=== PATIENT | male | born 1965 | race Caucasian/White ===

== ENCOUNTER 2019-05-26 10:27 | Outpatient (CLI) | payer OTHER, SELFPAY ==
[2019-05-26 10:46] LABS: Basophils Percent Auto 0.1 % (0.2-1.2); Eosinophils Absolute Auto 0.1 K/mm3 (0-0.3); Eosinophils Percent Auto 1.9 % (0-4.4); Hematocrit 49.2 % (42.0-52.0); Immature Granulocyte Absolute 0.02 K/mm3 (0.00-0.031); Immature Granulocyte Percent A 0.3 % (0-0.5); Lymphocytes Absolute Auto 1.09 K/mm3 (0.9-3.2); Lymphocytes Percent Auto 15.6 % (18.3-44.2); Mean Corpuscular HGB Conc 34.6 g/dl (32-36); Mean Corpuscular Hemoglobin 33.7 pg (26-34); Mean Corpuscular Volume 97.4 fl (80-100); Mean Platelet Volume 11.2 fl (7.4-10.4); Monocytes Percent Auto 14.9 % (2.6-8.5); Neutrophils Absolute Auto 4.7 K/mm3 (1.3-6.7); Neutrophils Percent Auto 67.2 % (45.5-73.1); Platelet Count Result 99 k/mm3 (150-375); Red Blood Count 5.05 M/mm3 (4.6-6.20); Red Cell Distribution Width 11.7 % (11.5-14.5)
[2019-05-26 12:21] LABS: Iron 53 ug/dL (49-181)
[2019-05-26 12:24] LABS: Alanine Aminotransferase 19 U/L (4-50); Albumin Level 4.4 g/dL (3.5-5.1); Alkaline Phosphatase 75 U/L (38-126); Aspartate Amino Transferase 24 U/L (17-59); Bilirubin,Total 1.9 mg/dL (0.2-1.3); Blood Urea Nitrogen 15 mg/dL (9-20); Calcium 9.1 mg/dL (8.4-10.2); Carbon Dioxide 26 mmol/L (22-30); Chloride 98 mmol/L (98-107); Estimated Glomerular Filt Rate > 60; Glucose 102 mg/dL (75-110); Lactate Dehydrogenase 447 U/L (313-618); Potassium 4.3 mmol/L (3.4-5.0); Sodium 142 mmol/L (137-145)
[2019-05-26 12:42] LABS: Percent Iron Saturation 17 % (20-50)
[2019-05-26 13:35] LABS: Folic Acid 13.3 ng/mL (2.76->20)
[2019-05-28 23:07] LABS: Platelet Antibody, Direct IgG NEGATIVE (NEGATIVE)
== END 2019-05-26 10:28 | disposition home or self-care (01) ==
LOC: ANHLAB 10:29
PROVIDERS: PCP Internal Medicine; Visit Provider Internal Medicine Hematology & Oncology
DX: D69.59 Other secondary thrombocytopenia (principal)
CPT/HCPCS: 36415; 80053; 82607; 82728; 82746; 83540; 83550; 83615; 85025; 86023

== ENCOUNTER 2019-06-01 07:41 | Outpatient (CLI) | payer OTHER, SELFPAY ==
--- NOTE | ~2019-06-01 | US_ITS ---
US abdomen complete EXAMINATION: US Abdomen Complete INDICATION: Thrombocytopenia PROCEDURE: Realtime High Resolution abdomen ultrasound. COMPARISON: No prior studies for comparison FINDINGS: Gallbladder within normal limits. No gallstones, pericholecystic fluid, gallbladder wall t hickening or biliary dilatation. Common bile duct measures 4 mm. Liver echotexture within normal limits without focal mass. Pancreas within normal limits. Pancreati c tail is obscured by bowel gas. Spleen is enlarged measuring 15 cm.. Renal echotexture is within no rmal limits bilaterally without hydronephrosis, contour deforming mass or renal stone. Right kidney m easures 11.2 cm. Left kidney measures 11 cm. Visualized aspects of the aorta and IVC are within normal limits. Portal vein is patent. No sonograph ic Rodriguez's sign indicated by the technologist. IMPRESSION: 1: Splenomegaly Reviewed, dictated and finalized at location A. IMPRESSION: 1: Splenomegaly
== END 2019-06-01 07:42 | disposition home or self-care (01) ==
LOC: ANHIMG 07:42
PROVIDERS: PCP Internal Medicine; Visit Provider Internal Medicine Hematology & Oncology
DX: D69.59 Other secondary thrombocytopenia (principal); R16.1 Splenomegaly, not elsewhere classified
CPT/HCPCS: 76700

== ENCOUNTER 2019-06-09 10:21 | Outpatient (CLI) | payer OTHER, SELFPAY | END 2019-06-09 10:22 | disposition home or self-care (01) | PROVIDERS: PCP Internal Medicine; Visit Provider Internal Medicine Hematology & Oncology | DX: R79.89 Other specified abnormal findings of blood chemistry (principal) | CPT/HCPCS: 36415; 81256 ==

== ENCOUNTER 2019-09-08 09:09 | Outpatient (CLI) | payer OTHER, SELFPAY ==
[2019-09-08 09:25] LABS: Blood Urea Nitrogen 21 mg/dL (8-26); Carbon Dioxide 25 mmol/L (22-30); Chloride 106 mmol/L (98-109); Estimated Glomerular Filt Rate > 60; Glucose 104 mg/dL (70-105); Potassium 4.7 mmol/L (3.5-4.9); Sodium 143 mmol/L (138-146)
[2019-09-08 09:27] LABS: Basophils Percent Auto 0.6 % (0.2-1.2); Eosinophils Absolute Auto 0.2 K/mm3 (0-0.3); Eosinophils Percent Auto 4.7 % (0-4.4); Hematocrit 45.6 % (42.0-52.0); Hemoglobin 15.7 g/dL (14.0-18.0); Immature Granulocyte Absolute 0.01 K/mm3 (0.00-0.031); Immature Granulocyte Percent A 0.3 % (0-0.5); Immature Platelet Fraction Pct 5.5 % (0.9-11.2); Lymphocytes Absolute Auto 1.11 K/mm3 (0.9-3.2); Lymphocytes Percent Auto 30.8 % (18.3-44.2); Mean Corpuscular HGB Conc 34.4 g/dl (32-36); Mean Corpuscular Hemoglobin 33.3 pg (26-34); Mean Corpuscular Volume 96.8 fl (80-100); Mean Platelet Volume 11.3 fl (7.4-10.4); Monocytes Absolute Auto 0.4 K/mm3 (0.1-0.6); Monocytes Percent Auto 11.1 % (2.6-8.5); Neutrophils Absolute Auto 1.9 K/mm3 (1.3-6.7); Neutrophils Percent Auto 52.5 % (45.5-73.1); Platelet Count Result 63 k/mm3 (150-375); Red Blood Count 4.71 M/mm3 (4.6-6.20); Red Cell Distribution Width 12.6 % (11.5-14.5); White Blood Count 3.6 K/mm3 (4.5-10.0)
[2019-09-08 12:41] LABS: Alanine Aminotransferase 27 U/L (4-50); Albumin Level 4.3 g/dL (3.5-5.1); Alkaline Phosphatase 77 U/L (38-126); Aspartate Amino Transferase 39 U/L (17-59); Bilirubin,Total 0.7 mg/dL (0.2-1.3); Blood Urea Nitrogen 21 mg/dL (9-20); Calcium 8.7 mg/dL (8.4-10.2); Carbon Dioxide 26 mmol/L (22-30); Chloride 108 mmol/L (98-107); Estimated Glomerular Filt Rate > 60; Glucose 104 mg/dL (75-110); Lactate Dehydrogenase 463 U/L (313-618); Potassium 4.7 mmol/L (3.4-5.0); Sodium 140 mmol/L (137-145)
[2019-09-08 13:47] LABS: Folic Acid 9.4 ng/mL (2.76->20)
== END 2019-09-08 09:10 | disposition home or self-care (01) ==
LOC: ANHLAB 09:11
PROVIDERS: PCP Internal Medicine; Visit Provider Internal Medicine Hematology & Oncology
DX: D69.59 Other secondary thrombocytopenia (principal)
CPT/HCPCS: 36415; 80048; 80053; 82607; 82728; 82746; 83615; 85025; 85055

== ENCOUNTER 2019-11-28 08:39 | Outpatient (CLI) | payer OTHER, SELFPAY ==
[2019-11-28 08:54] LABS: Basophils Percent Auto 0.7 % (0.2-1.2); Eosinophils Absolute Auto 0.2 K/mm3 (0-0.3); Eosinophils Percent Auto 3.7 % (0-4.4); Hematocrit 46.4 % (42.0-52.0); Hemoglobin 16.4 g/dL (14.0-18.0); Immature Granulocyte Absolute 0.01 K/mm3 (0.00-0.031); Immature Granulocyte Percent A 0.2 % (0-0.5); Lymphocytes Absolute Auto 1.37 K/mm3 (0.9-3.2); Lymphocytes Percent Auto 31.8 % (18.3-44.2); Mean Corpuscular HGB Conc 35.3 g/dl (32-36); Mean Corpuscular Hemoglobin 33.7 pg (26-34); Mean Corpuscular Volume 95.5 fl (80-100); Mean Platelet Volume 11.6 fl (7.4-10.4); Monocytes Absolute Auto 0.4 K/mm3 (0.1-0.6); Monocytes Percent Auto 9.3 % (2.6-8.5); Neutrophils Absolute Auto 2.3 K/mm3 (1.3-6.7); Neutrophils Percent Auto 54.3 % (45.5-73.1); Platelet Count Result 70 k/mm3 (150-375); Red Blood Count 4.86 M/mm3 (4.6-6.20); Red Cell Distribution Width 12.1 % (11.5-14.5); White Blood Count 4.3 K/mm3 (4.5-10.0)
[2019-11-28 13:06] LABS: Iron 159 ug/dL (49-181)
[2019-11-28 13:09] LABS: Alanine Aminotransferase 36 U/L (4-50); Albumin Level 4.6 g/dL (3.5-5.1); Alkaline Phosphatase 63 U/L (38-126); Anion Gap 8 mmol/L (8-16); Aspartate Amino Transferase 41 U/L (17-59); Bilirubin,Total 1.3 mg/dL (0.2-1.3); Blood Urea Nitrogen 18 mg/dL (9-20); Calcium 9.2 mg/dL (8.4-10.2); Carbon Dioxide 28 mmol/L (22-30); Chloride 103 mmol/L (98-107); Estimated Glomerular Filt Rate > 60; Glucose 98 mg/dL (75-110); Potassium 4.4 mmol/L (3.4-5.0); Sodium 139 mmol/L (137-145)
[2019-11-28 13:17] LABS: Percent Iron Saturation 44 % (20-50)
== END 2019-11-28 08:40 | disposition home or self-care (01) ==
LOC: ANHLAB 08:40
PROVIDERS: PCP Internal Medicine; Visit Provider Internal Medicine Hematology & Oncology
DX: D69.59 Other secondary thrombocytopenia (principal)
CPT/HCPCS: 36415; 80053; 82728; 83540; 83550; 85025

== ENCOUNTER 2020-03-12 08:48 | Outpatient (CLI) | payer OTHER, SELFPAY ==
[2020-03-12 09:12] LABS: Basophils Percent Auto 0.8 % (0.2-1.2); Eosinophils Absolute Auto 0.1 K/mm3 (0-0.3); Eosinophils Percent Auto 2.4 % (0-4.4); Hematocrit 47.1 % (42.0-52.0); Hemoglobin 16.5 g/dL (14.0-18.0); Immature Granulocyte Absolute 0.01 K/mm3 (0.00-0.031); Immature Granulocyte Percent A 0.3 % (0-0.5); Immature Platelet Fraction Pct 6.2 % (0.9-11.2); Lymphocytes Absolute Auto 1.16 K/mm3 (0.9-3.2); Lymphocytes Percent Auto 30.4 % (18.3-44.2); Mean Corpuscular Hemoglobin 33.7 pg (26-34); Mean Corpuscular Volume 96.1 fl (80-100); Mean Platelet Volume 11.2 fl (7.4-10.4); Monocytes Absolute Auto 0.4 K/mm3 (0.1-0.6); Monocytes Percent Auto 9.2 % (2.6-8.5); Neutrophils Absolute Auto 2.2 K/mm3 (1.3-6.7); Neutrophils Percent Auto 56.9 % (45.5-73.1); Platelet Count Result 67 k/mm3 (150-375); White Blood Count 3.8 K/mm3 (4.5-10.0)
[2020-03-12 12:24] LABS: Alanine Aminotransferase 25 U/L (4-50); Albumin Level 4.3 g/dL (3.5-5.1); Alkaline Phosphatase 59 U/L (38-126); Anion Gap 6 mmol/L (8-16); Aspartate Amino Transferase 31 U/L (17-59); Blood Urea Nitrogen 20 mg/dL (9-20); Calcium 9.3 mg/dL (8.4-10.2); Carbon Dioxide 32 mmol/L (22-30); Chloride 103 mmol/L (98-107); Estimated Glomerular Filt Rate > 60; Glucose 102 mg/dL (75-110); Potassium 4.3 mmol/L (3.4-5.0); Sodium 141 mmol/L (137-145)
[2020-03-12 12:43] LABS: Iron 116 ug/dL (49-181)
[2020-03-12 12:53] LABS: Percent Iron Saturation 33 % (20-50)
[2020-03-16 03:02] LABS: Methylmalonic Acid 242 nmol/L (87-318)
== END 2020-03-12 08:49 | disposition home or self-care (01) ==
PROVIDERS: PCP Internal Medicine; Visit Provider Internal Medicine Hematology & Oncology
DX: D69.59 Other secondary thrombocytopenia (principal); E83.110 Hereditary hemochromatosis
CPT/HCPCS: 36415; 80053; 82607; 82728; 83540; 83550; 83921; 85025; 85055

== ENCOUNTER 2021-01-10 14:55 | Outpatient (CLI) | payer OTHER, SELFPAY ==
[2021-01-10 15:15] LABS: Basophils Percent Auto 0.4 % (0.2-1.2); Eosinophils Absolute Auto 0.2 K/mm3 (0-0.3); Eosinophils Percent Auto 4.1 % (0-4.4); Hematocrit 46.2 % (42.0-52.0); Immature Granulocyte Absolute 0.02 K/mm3 (0.00-0.031); Immature Granulocyte Percent A 0.4 % (0-0.5); Immature Platelet Fraction Pct 8.3 % (0.9-11.2); Lymphocytes Absolute Auto 1.29 K/mm3 (0.9-3.2); Lymphocytes Percent Auto 28.2 % (18.3-44.2); Mean Corpuscular HGB Conc 34.6 g/dl (32-36); Mean Corpuscular Hemoglobin 34.9 pg (26-34); Mean Corpuscular Volume 100.7 fl (80-100); Mean Platelet Volume 11.6 fl (7.4-10.4); Monocytes Absolute Auto 0.4 K/mm3 (0.1-0.6); Monocytes Percent Auto 9.6 % (2.6-8.5); Neutrophils Absolute Auto 2.6 K/mm3 (1.3-6.7); Neutrophils Percent Auto 57.3 % (45.5-73.1); Platelet Count Result 70 k/mm3 (150-375); Red Blood Count 4.59 M/mm3 (4.6-6.20); Red Cell Distribution Width 12.1 % (11.5-14.5); White Blood Count 4.6 K/mm3 (4.5-10.0)
[2021-01-10 15:27] LABS: Alanine Aminotransferase 26 U/L (4-50); Albumin Level 4.7 g/dL (3.5-5.1); Alkaline Phosphatase 60 U/L (38-126); Anion Gap 7 mmol/L (8-16); Aspartate Amino Transferase 28 U/L (17-59); Bilirubin,Total 0.8 mg/dL (0.2-1.3); Blood Urea Nitrogen 19 mg/dL (9-20); Calcium 9.5 mg/dL (8.4-10.2); Carbon Dioxide 31 mmol/L (22-30); Chloride 102 mmol/L (98-107); Cholesterol 190 mg/dL (0-200); Estimated Glomerular Filt Rate > 60; Glucose 94 mg/dL (65-110); HDL Direct 41 mg/dL; Potassium 4.4 mmol/L (3.4-5.0); Sodium 140 mmol/L (137-145); Triglycerides 202 mg/dL (<150)
[2021-01-10 15:37] LABS: LDL Cholesterol Direct 122 mg/dL
[2021-01-10 15:57] LABS: Prostate Specific Antigen 3.9 ng/mL (< OR = 4.0)
[2021-01-10 17:52] LABS: Vitamin D 25 Hydroxy 55.2 ng/mL
== END 2021-01-10 14:56 | disposition home or self-care (01) ==
PROVIDERS: PCP Internal Medicine; Visit Provider Internal Medicine
DX: E83.110 Hereditary hemochromatosis (principal); E78.2 Mixed hyperlipidemia; D69.6 Thrombocytopenia, unspecified; Z79.899 Other long term (current) drug therapy; Z12.5 Encounter for screening for malignant neoplasm of prostate
CPT/HCPCS: 36415; 80053; 80061; 82306; 84153; 84443; 85025; 85055; G0103

== ENCOUNTER 2021-01-31 07:13 | Outpatient (CLI) | payer OTHER, SELFPAY ==
[2021-01-31 13:46] LABS: Iron 80 ug/dL (49-181)
[2021-02-01 13:04] LABS: Percent Iron Saturation 26 % (20-50)
== END 2021-01-31 07:14 | disposition home or self-care (01) ==
LOC: ANHLAB 07:15
PROVIDERS: PCP Internal Medicine; Visit Provider Internal Medicine
DX: D69.6 Thrombocytopenia, unspecified (principal); E83.110 Hereditary hemochromatosis
CPT/HCPCS: 36415; 82728; 83540; 83550

== ENCOUNTER 2022-01-24 07:36 | Outpatient (CLI) | payer OTHER, SELFPAY ==
[2022-01-24 08:14] LABS: Basophils Percent Auto 0.3 % (0.2-1.2); Eosinophils Absolute Auto 0.1 K/mm3 (0-0.3); Eosinophils Percent Auto 3.7 % (0-4.4); Hematocrit 47.1 % (42.0-52.0); Hemoglobin 16.4 g/dL (14.0-18.0); Immature Granulocyte Absolute 0.01 K/mm3 (0.00-0.031); Immature Granulocyte Percent A 0.3 % (0-0.5); Immature Platelet Fraction Pct 7.7 % (0.9-11.2); Lymphocytes Absolute Auto 1.19 K/mm3 (0.9-3.2); Mean Corpuscular HGB Conc 34.8 g/dl (32-36); Mean Corpuscular Hemoglobin 34.2 pg (26-34); Mean Corpuscular Volume 98.1 fl (80-100); Mean Platelet Volume 11.9 fl (7.4-10.4); Monocytes Absolute Auto 0.4 K/mm3 (0.1-0.6); Monocytes Percent Auto 9.3 % (2.6-8.5); Neutrophils Absolute Auto 2.1 K/mm3 (1.3-6.7); Neutrophils Percent Auto 54.9 % (45.5-73.1); Platelet Count Result 80 k/mm3 (150-375); Red Cell Distribution Width 12.4 % (11.5-14.5); White Blood Count 3.8 K/mm3 (4.5-10.0)
[2022-01-24 08:23] LABS: Alanine Aminotransferase 28 U/L (6-50); Albumin Level 4.6 g/dL (3.5-5.1); Alkaline Phosphatase 64 U/L (38-126); Anion Gap 9 mmol/L (8-16); Aspartate Amino Transferase 30 U/L (17-59); Bilirubin,Total 1.2 mg/dL (0.2-1.3); Blood Urea Nitrogen 17 mg/dL (9-20); Calcium 8.9 mg/dL (8.4-10.2); Carbon Dioxide 26 mmol/L (22-30); Chloride 105 mmol/L (98-107); Cholesterol 217 mg/dL (0-200); Estimated Glomerular Filt Rate > 60; Glucose 104 mg/dL (65-110); HDL Direct 49 mg/dL; Potassium 4.2 mmol/L (3.4-5.0); Sodium 140 mmol/L (137-145); Triglycerides 149 mg/dL (<150)
[2022-01-24 08:34] LABS: LDL Cholesterol Direct 125 mg/dL
[2022-01-24 08:53] LABS: Prostate Specific Antigen 4.4 ng/mL (< OR = 4.0)
[2022-01-24 08:56] LABS: Lymphocytes Percent Auto 31.5 % (18.3-44.2)
== END 2022-01-24 07:37 | disposition home or self-care (01) ==
PROVIDERS: PCP Internal Medicine; Visit Provider Internal Medicine
DX: R16.1 Splenomegaly, not elsewhere classified (principal); E83.110 Hereditary hemochromatosis; D69.6 Thrombocytopenia, unspecified; E78.2 Mixed hyperlipidemia; Z79.899 Other long term (current) drug therapy; Z12.5 Encounter for screening for malignant neoplasm of prostate
CPT/HCPCS: 36415; 80053; 80061; 84153; 85025; 85055; G0103

== ENCOUNTER 2022-02-06 09:05 | Outpatient (CLI) | payer OTHER, SELFPAY ==
[2022-02-06 11:24] LABS: Prostate Specific Antigen 4.1 ng/mL (< OR = 4.0)
== END 2022-02-06 09:06 | disposition home or self-care (01) ==
LOC: ANHLAB 09:07
PROVIDERS: PCP Internal Medicine; Visit Provider Internal Medicine
DX: R97.20 Elevated prostate specific antigen [PSA] (principal)
CPT/HCPCS: 36415; 84153

== ENCOUNTER 2022-02-09 07:34 | Outpatient (CLI) | payer OTHER, SELFPAY ==
--- NOTE | ~2022-02-09 | CT_ITS ---
EXAMINATION: CT BRAIN W/O DATE: 02/09/2022 07:56 INDICATION: Frequent headaches TECHNIQUE: Computed tomography (CT) of the head was performed without intravenous contrast. The dose- length product was 605.33 mGy-cm. Automated exposure control and iterative reconstruction technique w ere employed. COMPARISON: No prior studies for comparison. FINDINGS: Normal brain parenchymal volume for age. Normal rubin-white differentiation. No acute intrac ranial hemorrhage, infarction, mass or mass effect. No ventriculomegaly or midline shift. Midline sagittal images demonstrate a normal corpus callosum, c raniovertebral junction and sella turcica. Basilar cisterns are patent. Paranasal sinuses and mastoids are pneumatized. No depressed skull fractures. IMPRESSION: 1. No acute intracranial abnormality. Reviewed, dictated and finalized at location A. [employer] REPA[employer]ER
== END 2022-02-09 07:35 | disposition home or self-care (01) ==
PROVIDERS: PCP Internal Medicine; Visit Provider Internal Medicine
DX: R51.9 Headache, unspecified (principal)
CPT/HCPCS: 70450

== ENCOUNTER 2022-07-22 07:33 | Outpatient (CLI) | payer OTHER, SELFPAY ==
[2022-07-22 08:27] LABS: Alanine Aminotransferase 28 U/L (6-50); Albumin Level 4.4 g/dL (3.5-5.1); Alkaline Phosphatase 58 U/L (38-126); Anion Gap 7 mmol/L (8-16); Aspartate Amino Transferase 27 U/L (17-59); Blood Urea Nitrogen 21 mg/dL (9-20); Calcium 8.8 mg/dL (8.4-10.2); Carbon Dioxide 27 mmol/L (22-30); Chloride 105 mmol/L (98-107); Cholesterol 193 mg/dL (0-200); Estimated Glomerular Filt Rate > 60; Glucose 102 mg/dL (65-110); HDL Direct 46 mg/dL; Potassium 4.1 mmol/L (3.4-5.0); Sodium 139 mmol/L (137-145); Triglycerides 141 mg/dL (<150)
[2022-07-22 08:38] LABS: LDL Cholesterol Direct 120 mg/dL
== END 2022-07-22 07:34 | disposition home or self-care (01) ==
LOC: ANHLAB 07:35
PROVIDERS: PCP Family Medicine; Visit Provider Internal Medicine
DX: E78.5 Hyperlipidemia, unspecified (principal)
CPT/HCPCS: 36415; 80053; 80061

== ENCOUNTER 2023-01-17 08:51 | Outpatient (CLI) | payer OTHER, SELFPAY ==
[2023-01-17 10:25] LABS: Basophils Percent Auto 0.6 % (0.2-1.2); Eosinophils Absolute Auto 0.1 K/mm3 (0-0.3); Eosinophils Percent Auto 2.5 % (0-4.4); Hematocrit 47.3 % (42.0-52.0); Hemoglobin 16.1 g/dL (14.0-18.0); Immature Granulocyte Absolute 0.01 K/mm3 (0.00-0.031); Immature Granulocyte Percent A 0.3 % (0-0.5); Immature Platelet Fraction Pct 7.9 % (0.9-11.2); Lymphocytes Absolute Auto 0.96 K/mm3 (0.9-3.2); Lymphocytes Percent Auto 27.1 % (18.3-44.2); Mean Corpuscular Hemoglobin 33.2 pg (26-34); Mean Corpuscular Volume 97.5 fl (80-100); Mean Platelet Volume 12.2 fl (7.4-10.4); Monocytes Absolute Auto 0.3 K/mm3 (0.1-0.6); Monocytes Percent Auto 9.3 % (2.6-8.5); Neutrophils Absolute Auto 2.1 K/mm3 (1.3-6.7); Neutrophils Percent Auto 60.2 % (45.5-73.1); Platelet Count Result 65 k/mm3 (150-375); Red Blood Count 4.85 M/mm3 (4.6-6.20); Red Cell Distribution Width 12.2 % (11.5-14.5); White Blood Count 3.5 K/mm3 (4.5-10.0)
[2023-01-17 10:37] LABS: Alanine Aminotransferase 23 U/L (6-50); Albumin Level 4.4 g/dL (3.5-5.1); Alkaline Phosphatase 57 U/L (38-126); Anion Gap 7 mmol/L (8-16); Aspartate Amino Transferase 27 U/L (17-59); Bilirubin,Total 1.5 mg/dL (0.2-1.3); Blood Urea Nitrogen 21 mg/dL (9-20); Carbon Dioxide 25 mmol/L (22-30); Chloride 106 mmol/L (98-107); Cholesterol 203 mg/dL (0-200); Estimated Glomerular Filt Rate > 60; Glucose 97 mg/dL (65-110); HDL Direct 47 mg/dL; Sodium 138 mmol/L (137-145); Triglycerides 122 mg/dL (<150)
[2023-01-17 10:50] LABS: LDL Cholesterol Direct 122 mg/dL
[2023-01-17 10:58] LABS: Iron 206 ug/dL (49-181)
[2023-01-17 11:07] LABS: Prostate Specific Antigen 3.7 ng/mL (< OR = 4.0)
[2023-01-17 11:07] LABS: Percent Iron Saturation 66 % (20-50)
== END 2023-01-17 08:52 | disposition home or self-care (01) ==
PROVIDERS: PCP Nurse Practitioner Family; Referring Provider Internal Medicine Hematology & Oncology; Visit Provider Nurse Practitioner Family
DX: Z12.5 Encounter for screening for malignant neoplasm of prostate (principal); E83.110 Hereditary hemochromatosis; D69.6 Thrombocytopenia, unspecified; D69.59 Other secondary thrombocytopenia; E78.5 Hyperlipidemia, unspecified; Z00.00 Encounter for general adult medical examination without abnormal findings
CPT/HCPCS: 36415; 80053; 80061; 82728; 83540; 83550; 84153; 85025; 85055; G0103

== ENCOUNTER 2023-02-05 08:47 | Outpatient (CLI) | payer OTHER, SELFPAY ==
[2023-02-05 10:43] LABS: Vitamin D 25 Hydroxy 45.9 ng/mL
== END 2023-02-05 08:48 | disposition home or self-care (01) ==
PROVIDERS: PCP Nurse Practitioner Family; Visit Provider Nurse Practitioner Family
DX: R20.0 Anesthesia of skin (principal); Z72.89 Other problems related to lifestyle; D69.6 Thrombocytopenia, unspecified; E78.5 Hyperlipidemia, unspecified
CPT/HCPCS: 36415; 82306; 82607; 82746; 84425

== ENCOUNTER 2023-03-23 08:47 | Outpatient (CLI) | payer OTHER, SELFPAY ==
[2023-03-23 09:16] LABS: Hematocrit 46.5 % (42.0-52.0); Hemoglobin 15.7 g/dL (14.0-18.0); Immature Platelet Fraction Pct 7.7 % (0.9-11.2); Mean Corpuscular HGB Conc 33.8 g/dl (32-36); Mean Corpuscular Hemoglobin 32.9 pg (26-34); Mean Corpuscular Volume 97.5 fl (80-100); Mean Platelet Volume 11.5 fl (7.4-10.4); Platelet Count Result 63 k/mm3 (150-375); Red Blood Count 4.77 M/mm3 (4.6-6.20); Red Cell Distribution Width 12.3 % (11.5-14.5); White Blood Count 3.6 K/mm3 (4.5-10.0)
[2023-03-23 09:25] LABS: Alanine Aminotransferase 31 U/L (6-50); Albumin Level 4.1 g/dL (3.5-5.1); Alkaline Phosphatase 69 U/L (38-126); Anion Gap 6 mmol/L (8-16); Aspartate Amino Transferase 32 U/L (17-59); Bilirubin,Total 0.8 mg/dL (0.2-1.3); Blood Urea Nitrogen 16 mg/dL (9-20); Calcium 8.8 mg/dL (8.4-10.2); Carbon Dioxide 27 mmol/L (22-30); Chloride 107 mmol/L (98-107); Estimated Glomerular Filt Rate > 60; Glucose 106 mg/dL (65-110); Potassium 4.4 mmol/L (3.4-5.0); Sodium 140 mmol/L (137-145)
[2023-03-23 09:39] LABS: Iron 105 ug/dL (49-181)
[2023-03-23 09:48] LABS: Percent Iron Saturation 33 % (20-50)
[2023-03-23 10:31] LABS: Folic Acid 7.8 ng/mL (2.76->20)
[2023-03-23 10:38] LABS: Band Neutrophils Percent 4 % (0-6); Eosinophils Absolute Manual 0.14 K/mm3 (0.02-0.5); Eosinophils Percent Manual 4 % (0-4); Lymphocytes Percent Manual 28 % (18-44); Monocytes Absolute Manual 0.32 K/mm3 (0.1-0.90); Monocytes Percent Manual 9 % (3-9); Neutrophils Absolute Manual 2.12 K/mm3 (1.3-6.7); Neutrophils Percent Manual 55 % (46-73); Platelet Estimate Decreased (Adequate); Total Cells Counted 100
[2023-03-23 10:40] LABS: Schistocytes None Seen (NORMAL)
== END 2023-03-23 08:48 | disposition home or self-care (01) ==
PROVIDERS: Visit Provider Internal Medicine Hematology & Oncology
DX: E83.110 Hereditary hemochromatosis (principal)
CPT/HCPCS: 36415; 80053; 82607; 82728; 82746; 83540; 83550; 85025; 85055

== ENCOUNTER 2023-09-08 13:50 | Emergency (ER) | payer OTHER, SELFPAY ==
--- NOTE | ~2023-09-08 | XR_ITS ---
XR chest 2V DATE: 09/08/2023 15:45 INDICATION: Left chest wall pain TECHNIQUE: PA and lateral views COMPARISON: None FINDINGS: No pulmonary infiltrate or consolidation, pleural effusion or pulmonary vascular congestion or pneumothorax is detected. Normal heart size. No hilar or mediastinal enlargement. IMPRESSION: No active cardiopulmonary disease Reviewed, dictated and finalized at location A.
--- NOTE | ~2023-09-08 | XR_ITS ---
XR shoulder RT min 2V DATE: 09/08/2023 15:45 INDICATION: Shoulder pain TECHNIQUE: 4 views COMPARISON: None FINDINGS: There are at least a couple of loose bodies measuring up to 13 mm, consistent with synovial osteochondromatosis. There is mild osteoarthritis of the right glenohumeral joint. There is mild to moderate degenerative change at the right acromioclavicular joint. No fracture, dislocation, periosteal reaction or bone destruction. 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
[2023-09-08 13:55] VITALS: BP 146/97; PULSE 66; RESP 18; TEMP 36.9; O2SAT 99
--- NOTE | 2023-09-08 15:19 | ECG_ITS ---
Test Date: 2023-09-08 15:24:00 Measurements Intervals [place] Rate: 58 P: 46 CA: 179 QRS: 27 QRSD: 103 T: 14 QT: 413 QTc: 408 Interpretive Statements SINUS BRADYCARDIA No previous ECG available for comparison Electronically Signed On 09-09-2023 12:56:19 CDT by Sameer Neves M.D.
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
--- NOTE | 2023-09-08 15:37 | PC.NURSE ---
Pt taken to xray at this time
[2023-09-08] MEDS: TETANUS,DIPHTHERIA,AC PERTUSSIS ADULT (0.5 ML) BOOSTRIX IM (15:55)
[2023-09-08 17:05] VITALS: BP 130/76; PULSE 58; RESP 16; O2SAT 100
== END 2023-09-08 17:05 | disposition home or self-care (01) ==
PROVIDERS: Emergency Provider Emergency Medicine
DX: R07.89 Other chest pain (principal); S80.211A Abrasion, right knee, initial encounter; S50.311A Abrasion of right elbow, initial encounter; Z23 Encounter for immunization; E78.5 Hyperlipidemia, unspecified; V18.4XXA Pedal cycle driver injured in noncollision transport accident in traffic accident, initial encounter
CPT/HCPCS: 71046; 73030; 90471; 90715; 93005; 99284

== ENCOUNTER 2023-09-15 08:12 | Outpatient (CLI) | payer OTHER, SELFPAY ==
[2023-09-15 09:07] LABS: Alanine Aminotransferase 21 U/L (6-50); Albumin Level 4.2 g/dL (3.5-5.1); Alkaline Phosphatase 71 U/L (38-126); Anion Gap 6 mmol/L (4-12); Aspartate Amino Transferase 29 U/L (17-59); Bilirubin,Total 1.2 mg/dL (0.2-1.3); Blood Urea Nitrogen 20 mg/dL (9-20); Carbon Dioxide 28 mmol/L (22-30); Chloride 106 mmol/L (98-107); Estimated Glomerular Filt Rate > 60; Glucose 101 mg/dL (65-110); Potassium 4.2 mmol/L (3.4-5.0); Sodium 140 mmol/L (137-145)
[2023-09-15 09:11] LABS: Hemoglobin 15.8 g/dL (14.0-18.0); Immature Platelet Fraction Pct 6.5 % (0.9-11.2); Mean Corpuscular HGB Conc 35.1 g/dl (32-36); Mean Corpuscular Hemoglobin 34.1 pg (26-34); Mean Platelet Volume 11.1 fl (7.4-10.4); Platelet Count Result 87 k/mm3 (150-375); Red Blood Count 4.64 M/mm3 (4.6-6.20); Red Cell Distribution Width 11.9 % (11.5-14.5); White Blood Count 4.3 K/mm3 (4.5-10.0)
[2023-09-15 09:28] LABS: Iron 77 ug/dL (49-181)
[2023-09-15 09:37] LABS: Percent Iron Saturation 25 % (20-50)
== END 2023-09-15 08:13 | disposition home or self-care (01) ==
PROVIDERS: PCP Nurse Practitioner Family; Visit Provider Nurse Practitioner Family
DX: E83.119 Hemochromatosis, unspecified (principal); D69.6 Thrombocytopenia, unspecified
CPT/HCPCS: 36415; 80053; 82728; 83540; 83550; 85027; 85055

== ENCOUNTER 2024-01-09 07:54 | Outpatient (CLI) | payer OTHER, SELFPAY ==
[2024-01-09 08:21] LABS: Alanine Aminotransferase 24 U/L (6-50); Albumin Level 4.6 g/dL (3.5-5.1); Alkaline Phosphatase 58 U/L (38-126); Anion Gap 7 mmol/L (4-12); Aspartate Amino Transferase 28 U/L (17-59); Bilirubin,Total 1.1 mg/dL (0.2-1.3); Blood Urea Nitrogen 17 mg/dL (9-20); Calcium 9.4 mg/dL (8.4-10.2); Carbon Dioxide 31 mmol/L (22-30); Chloride 102 mmol/L (98-107); Cholesterol 210 mg/dL (0-200); Estimated Glomerular Filt Rate > 60; Glucose 102 mg/dL (65-110); HDL Direct 50 mg/dL; Potassium 4.4 mmol/L (3.4-5.0); Sodium 140 mmol/L (137-145); Triglycerides 161 mg/dL (<150)
[2024-01-09 08:23] LABS: Basophils Percent Auto 0.3 % (0.2-1.2); Eosinophils Absolute Auto 0.1 K/mm3 (0-0.3); Eosinophils Percent Auto 2.1 % (0-4.4); Hematocrit 48.5 % (42.0-52.0); Hemoglobin 16.9 g/dL (14.0-18.0); Immature Granulocyte Absolute 0.01 K/mm3 (0.00-0.031); Immature Granulocyte Percent A 0.3 % (0-0.5); Immature Platelet Fraction Pct 8.1 % (0.9-11.2); Lymphocytes Absolute Auto 0.99 K/mm3 (0.9-3.2); Lymphocytes Percent Auto 25.8 % (18.3-44.2); Mean Corpuscular HGB Conc 34.8 g/dl (32-36); Mean Corpuscular Hemoglobin 33.9 pg (26-34); Mean Corpuscular Volume 97.4 fl (80-100); Mean Platelet Volume 11.7 fl (7.4-10.4); Monocytes Absolute Auto 0.4 K/mm3 (0.1-0.6); Monocytes Percent Auto 9.4 % (2.6-8.5); Neutrophils Absolute Auto 2.4 K/mm3 (1.3-6.7); Neutrophils Percent Auto 62.1 % (45.5-73.1); Platelet Count Result 67 k/mm3 (150-375); Red Blood Count 4.98 M/mm3 (4.6-6.20); Red Cell Distribution Width 12.8 % (11.5-14.5); White Blood Count 3.8 K/mm3 (4.5-10.0)
[2024-01-09 08:30] LABS: Iron 143 ug/dL (49-181)
[2024-01-09 08:32] LABS: LDL Cholesterol Direct 120 mg/dL
[2024-01-09 08:39] LABS: Percent Iron Saturation 43 % (20-50)
== END 2024-01-09 07:55 | disposition home or self-care (01) ==
LOC: ANHLAB 07:55
PROVIDERS: PCP Nurse Practitioner Family; Visit Provider Nurse Practitioner Family
DX: Z72.89 Other problems related to lifestyle (principal); E83.110 Hereditary hemochromatosis; E78.5 Hyperlipidemia, unspecified; D69.6 Thrombocytopenia, unspecified
CPT/HCPCS: 36415; 80053; 80061; 83540; 83550; 85025; 85055

== ENCOUNTER 2024-01-14 08:20 | Outpatient (CLI) | payer OTHER, SELFPAY ==
[2024-01-14 09:58] LABS: Prostate Specific Antigen 4.5 ng/mL (< OR = 4.0)
[2024-01-14 10:04] LABS: Hemoglobin A1C 5.5 % (<5.7)
== END 2024-01-14 08:21 | disposition home or self-care (01) ==
LOC: ANHLAB 08:21
PROVIDERS: PCP Nurse Practitioner Family; Visit Provider Nurse Practitioner Family
DX: Z12.5 Encounter for screening for malignant neoplasm of prostate (principal); E83.110 Hereditary hemochromatosis; E78.5 Hyperlipidemia, unspecified; D69.6 Thrombocytopenia, unspecified; E66.9 Obesity, unspecified; R73.01 Impaired fasting glucose; Z72.89 Other problems related to lifestyle
CPT/HCPCS: 36415; 83036; 84153; G0103

== ENCOUNTER 2024-02-15 07:45 | Outpatient (CLI) | payer OTHER, SELFPAY ==
[2024-02-15 09:05] LABS: Prostate Specific Antigen 4.2 ng/mL (< OR = 4.0)
== END 2024-02-15 07:46 | disposition home or self-care (01) ==
PROVIDERS: PCP Nurse Practitioner Family; Visit Provider Nurse Practitioner Family
DX: R97.20 Elevated prostate specific antigen [PSA] (principal)
CPT/HCPCS: 36415; 84153

== ENCOUNTER 2024-06-12 12:45 | Outpatient (CLI) | payer OTHER, SELFPAY ==
--- OUTSIDE RECORDS SUMMARY | 2024-06-12 13:06 | XMS_ITS | Referral Summary ---
Author Organization [facility] Address [address] [place] [address] Care Team Providers Care Bus Driver Name Role Phone Natty Royal NP Primary Care Provider [phone] Encounters Date Type Department Care Team Description 04/11/2024 Orders Only [facility] Surgery [address] [place] [address] Jovany Rizvi MD Elevated PSA (Primary Dx) 04/04/2024 1:30 PM [employer] - 04/04/2024 2:20 PM [employer] Surgery [facility] Operating Room [address] [address] [address] Jovany Rizvi MD TRANSPERINEAL EXACT VU GUIDED PROSTATE BIOPSY 04/04/2024 1:41 PM [employer] Anesthesia Event [facility] Operating Room [address] [address] [address] Debra Shane MD Khodamoradi, Shahrdad, MD 04/04/2024 10:41 AM [employer] - 04/04/2024 3:32 PM [employer] Hospital Encounter [facility] Operating Room [address] [address] [address] Jovany Rizvi MD Elevated PSA Discharge Disposition: Discharge to home or self care 03/16/2024 7:43 AM [employer] - 03/16/2024 11:59 PM [employer] Hospital Encounter [facility] Imaging [address] [address] [address] Elevated PSA Discharge Disposition: Discharge to home or self care from Last 3 Months Allergies No known active allergies Medications famciclovir (FAMVIR) 250 mg tabletIndicatio ns:Prophylaxis, Medical Take 1 tablet (250 mg total) by mouth every 12 (twelve) hours 3 Active fluticasone propionate (FLONASE) 50 mcg/actuation nasal sprayIndication s:Allergic Rhinitis Administer 2 sprays into each nostril daily as needed for rhinitis or allergies 4 Active acetaminophen (TYLENOL) 500 mg tabletIndicatio ns:Pain Take 2 tablets (1,000 mg total) by mouth every 6 (six) hours as needed for pain Active psyllium, aspartame, SF (METAMUCIL SF) 3.4 gram packetIndicatio ns:constipation Take 1 packet by mouth daily as needed Active Active Problems Problem Noted Date Diagnosed Date Elevated PSA 02/24/2024 Overview (02/24/2024): 02/25/24: NC. Elevated PSA. PSA 3.17; 4K 2%; %Free 23%. Pt previously followed by, Dr. Jane. 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 2-4 times a month 04/04/2024 Q2: How many drinks containi ng alcohol do you have on a typical day when you are drinking? 5 or 6 04/04/2024 Q3: How often do you have si x or more drinks on one occasion? Never 04/04/2024 Personal Safety Answer Date Recorded Have you ever been in or are you currently in a harmful physical or emotional relationship or is someone making you feel afraid or unsafe? Denies 04/04/2024 Sex and Gender Information Value Date Recorded Sex Assigned at Not on file Legal Sex Male 7:52 AM [employer] Gender Identity Not on file Sexual Orientation Not on file Last Filed Vital Signs Vital Sign Reading Time Taken Comments Blood Pressure 117/73 04/04/2024 3:15 PM [employer] Pulse 55 04/04/2024 3:15 PM [employer] Temperature 36.4 C (97.5 F) 04/04/2024 3:15 PM [employer] Respiratory Rate 22 04/04/2024 3:15 PM [employer] Oxygen Saturation 99% 04/04/2024 3:15 PM [employer] Inhaled Oxygen Concentration - - Weight 106.6 kg (235 lb) 04/04/2024 10:47 AM [employer] Height 190.5 cm (6' 3 ) 04/04/2024 10:47 AM [employer] Body Mass Index 29.37 04/04/2024 10:47 AM [employer] Plan of Treatment Not on file Procedures Procedure Name Priority Date/Time Associated Diagnosis Comments SURGICAL PATHOLOGY Routine 04/04/2024 1: 54 PM [employer] Elevated PSA TRANSPERINEAL EXACT VU GUIDED PROSTATE BIOPSY 04/04/2024 1:42 PM [employer] Elevated PSA MRI PELVIS PROSTATE W WO CONTRAST Schedule Routine, Read Routine (OP Routine) 03/16/2024 9:02 AM [employer] Elevated PSA PSA DIAGNOSTIC Routine 04/15/2019 from Last 3 Months or Most Recently Relevant to Health Maintenance Results * Surgical pathology (04/04/2024 1:54 PM [employer]) Tissue (Prostate, Needle Biopsy) 04/04/2024 1:54 PM [employer] Tissue (Prostate, Needle Biopsy) 04/04/2024 1:54 PM [employer] Tissue (Prostate, Needle Biopsy) 04/04/2024 1:54 PM [employer] Tissue (Prostate, Needle Biopsy) 04/04/2024 1:55 PM [employer] Tissue (Prostate, Needle Biopsy) 04/04/2024 1:55 PM [employer] Tissue (Prostate, Needle Biopsy) 04/04/2024 1:55 PM [employer] Tissue (Prostate, Needle Biopsy) 04/04/2024 1:55 PM [employer] Tissue (Prostate, Needle Biopsy) 04/04/2024 1:55 PM [employer] Tissue (Prostate, Needle Biopsy) 04/04/2024 1:55 PM [employer] Tissue (Prostate, Needle Biopsy) 04/04/2024 1:55 PM [employer] Tissue (Prostate, Needle Biopsy) 04/04/2024 1:58 PM [employer] Narrative PATHOLOGY [facility] - 04/07/2024 2:22 PM [employer] EPIC results best viewed via link to PDF [facility] [place] [address] Note to Patients: This report may contain a detailed description of human tissue sent by a health care provider to the laboratory for pathologic evaluation. The content of this report is essential for diagnosis and may provide important critical findings. This information may be unfamiliar to patients to review without a medical professional present. It is advised that the patient review this report in the presence of a health care provider who can answer questions and explain the details. SURGICAL PATHOLOGY REPORT FINAL Patient Name: DANTE POTTER Gender: M : 1965 (Age: 59) Address[address] [address] [place], [place] [id number] Hospital #: [id number] Taken:04/04/2024 Received:04/04/2024 Reported: 04/07/2024 Patient Type: [facility] EP SAME Client [facility] Service: Surgery Location: Physician(s): Karon Buchanan NP Diagnosis: A. Prostate, right posterior medial, needle biopsy - Benign prostatic tissue - Chronic inflammation B. Prostate, right posterior lateral, needle biopsy - Benign prostatic tissue C. Prostate, right base, needle biopsy - Benign prostatic tissue D. Prostate, right anterior medial, needle biopsy - Benign skeletal muscle and fibroconnective tissue - No prostatic tissue present E. Prostate, right anterior lateral, needle biopsy - Benign skeletal muscle and fibroconnective tissue - No prostatic tissue present F. Prostate, left posterior medial, needle biopsy - Benign prostatic tissue - Chronic inflammation G. Prostate, left posterior lateral, needle biopsy - Benign prostatic tissue - Chronic inflammation H. Prostate, left base, needle biopsy - Benign prostatic tissue I. Prostate, left anterior medial, needle biopsy - Benign skeletal muscle and fibroconnective tissue - No prostatic tissue present J. Prostate, left posterior lateral, needle biopsy - Benign prostatic tissue - Chronic inflammation K. Prostate, region of interest, needle biopsy - Benign prostatic tissue kw/04/07/2024 12:55 By this signature, I attest that the above diagnosis is based upon my personal examination of the slides(and/or other material indicated in the diagnosis). Aleksandr Yoon DO Report Electronically Reviewed and Signed Out By Aleksandr Yoon DO 04/07/2024 14:22:11 Caroline Bedolla M.D. History: The patient is a 59-year-old man presenting with elevated PSA. Operative procedure: Transperineal exact vu guided prostate biopsy. Specimen(s) Received: A: Right posterior medial B: Right posterior lateral C: Right base D: Right anterior medial E: Right anterior lateral F: Left posterior medial G: Left posterior lateral H: Left base I: Left anterior medial J: Left anterior lateral K: Jennifer Gross Description: Received in 11 formalin jars labeled with the patient's identifiers. A. Labeled right posterior medial and consists of three core(s) of soft andersen tissue (0.3-1.5 cm in length by 0.1 cm in diameter). Stained with eosin.Labeled A1. Jar 0. B. Labeled right posterolateral and consists of two core(s) of soft andersen tissue (1.7-1.4 cm in length by 0.1 cm in diameter). Stained with eosin.Labeled B1. Jar 0. C. Labeled right base and consists of three core(s) of soft andersen tissue (0.2 to 0.8 cm in length by 0.1 cm in diameter). Stained with eosin.Labeled C1. Jar 0. D. Labeled right anterior medial and consists of multiple minute fragments of soft andersen-white tissue (0.3 x 0.3 x 0.1 cm in aggregate). Stained with eosin.Labeled D1. Jar 0. E. Labeled right anterior lateral and consists of one core(s) of soft andersen tissue (0.4 cm in length by 0.1 cm in diameter) admixed with multiple minute fragments of soft andersen-pink tissue (0.3 x 0.2 x 0.1 cm in aggregate). Stained with eosin.Labeled E1. Jar 0. F. Labeled left posterior medial and consists of two core(s) of soft andersen tissue (0.4-0.9 cm in length by 0.1 cm in diameter) admixed with a fragments of soft andersen-white tissue (0.2 x 0.2 x 0.1 cm in aggregate). Stained with eosin.Labeled F1. Jar 0. G. Labeled left posterolateral and consists of three core(s) of soft andersen tissue (0.2 to 1.5 cm in length by 0.1 cm in diameter). Stained with eosin.Labeled G1. Jar 0. H. Labeled left base and consists of two core(s) of soft andersen tissue (0.7-1.0 cm in length by 0.1 cm in diameter). Stained with eosin.Labeled H1. Jar 0. I. Labeled left anterior medial and consists of one core(s) of soft andersen tissue (1.3 cm in length by 0.1 cm in diameter). Stained with eosin.Labeled I1. Jar 0. J. Labeled left anterior lateral and consists of three core(s) of soft andersen tissue (1.2 to 2.2 cm in length by 0.1 cm in diameter). Stained with eosin.Labeled J1. Jar 0. K. Labeled JENNIFER 1 and consists of two core(s) of soft andersen tissue (0.8-1.4 cm by 0.1 cm in diameter). Stained with eosin.Labeled K1. Jar 0. emg/04/04/2024 17:44 PA(s): Chely Johnson MS, PA ([facility])CM By this signature, I attest that the above diagnosis is based upon my personal examination of the slides(and/or other material). Addenda/Procedures Microscopic slide review and interpretation for this case was performed at [facility], Department of Surgical Pathology, [address] [facility] [place], [place] [id number], [place] [address] CLIA # [id number] The performance characteristics of some immunohistochemical stains, fluorescence in-situ hybridization tests and immunophenotyping by flow cytometry cited in this report (if any) were determined by the Surgical Pathology and Flow Cytometry Departments at [facility] as part of an ongoing quality systems specialist program and in compliance with federally mandated regulations drawn from the Clinical Laboratory Improvement Act of 1988 (CLIA '88). Some of these tests rely on the use of analyte specific reagents and are subject to specific labeling requirements by the US Food and Drug Administration. Such diagnostic tests may only be performed in a facility that is certified by the Department of Health and Human Services as a high complexity laboratory under CLIA '88. The FDA has determined that such clearance or approval is not necessary. This test is used for clinical purposes. It should not be regarded as investigational or for research. Nevertheless, federal rules concerning the medical use of analyte specific reagents require that the following disclaimer be attached to the report: This test was developed and its performance characteristics determined by the Surgical Pathology and Flow Cytometry Departments of [facility]. It has not been cleared or approved by the U. S. Food and Drug Administration. IMAGES AND SCANNED DOCUMENTS, IF INCLUDED, ONLY VIEWABLE IN PDF VERSION OF REPORT us Jovany Rizvi MD LAB PATHOLOGY ORDERABLES Final Result PATHOLOGY [facility] [phone] * MRI Pelvis Prostate W WO Contrast (03/16/2024 9:02 AM [employer]) Anatomical Region Laterality Modality Body N/A Magnetic Resonan ce 03/17/2024 9:54 AM [employer] Impressions 03/18/2024 6:46 AM [employer] A lesion in the right junction of medial and lateral peripheral zone at the mid gland to apex is at high suspicion for malignancy with an overall PI-RADS score of 4. No extraprostatic extension. Dictated by: Lino Humphreys MD The radiology attending physician has personally reviewed this study, and had reviewed and/or edited this written report and agrees with it. Electronically signed by: Jacquie Villeda M.D. Narrative 03/18/2024 6:46 AM [employer] EXAMINATION: MAGNETIC RESONANCE IMAGING OF THE PELVIS WITHOUT AND WITH CONTRAST HISTORY: PSA of 4.2, no prior biopsy TECHNIQUE: MR imaging of the prostate gland was performed with a torso phased array coil prior to and following administration of intravenous gadolinium. Protocol: Prostate 3T Contrast: gadoterate 18 mL COMPARISON: None FINDINGS: Prostate volume: 52 cc The prostate transition zone is enlarged with benign prostatic hyperplasia. Areas of wedge-shaped and linear T2 hypointensity throughout the peripheral zone are compatible with sequela of prostatitis. The prostate was assessed using the PI-RADS version 2.1 scoring system. The following lesions are of at least intermediate suspicion (PI-RADS 3 or greater): Lesion 1: Side: right Location: junction of medial and lateral Zone: peripheral zone Craniocaudal: mid gland to apex Rios images: series 5, image 18 Size: 1.3 mL; largest axial dimensions 26 x 9 mm Extraprostatic extension: - tumor contact length with prostate margin: 26 - margin bulge/irregularity: no - rectoprostatic angle obliteration: no - neurovascular bundle asymmetry: no - gross extraprostatic extension: no - overall EPE grade: 1 (either curvilinear contact length > 15 mm OR margin irregularity/bulge) T2WI score: 3 DWI score: 3 DCE: positive Overall PI-RADS v2.1 assessment: 4 Staging Information: No enlarged lymph nodes are identified. No suspicious osseous lesions are identified. Other findings: Urinary bladder is normal. Rectum and seminal vesicals are normal. No free fluid in the pelvis. Procedure Note Jacquie Villeda MD - 03/18/2024 EXAMINATION: MAGNETIC RESONANCE IMAGING OF THE PELVIS WITHOUT AND WITH CONTRAST HISTORY: PSA of 4.2, no prior biopsy TECHNIQUE: MR imaging of the prostate gland was performed with a torso phased array coil prior to and following administration of intravenous gadolinium. Protocol: Prostate 3T Contrast: gadoterate 18 mL COMPARISON: None FINDINGS: Prostate volume: 52 cc The prostate transition zone is enlarged with benign prostatic hyperplasia. Areas of wedge-shaped and linear T2 hypointensity throughout the peripheral zone are compatible with sequela of prostatitis. The prostate was assessed using the PI-RADS version 2.1 scoring system. The following lesions are of at least intermediate suspicion (PI-RADS 3 or greater): Lesion 1: Side: right Location: junction of medial and lateral Zone: peripheral zone Craniocaudal: mid gland to apex Rios images: series 5, image 18 Size: 1.3 mL; largest axial dimensions 26 x 9 mm Extraprostatic extension: - tumor contact length with prostate margin: 26 - margin bulge/irregularity: no - rectoprostatic angle obliteration: no - neurovascular bundle asymmetry: no - gross extraprostatic extension: no - overall EPE grade: 1 (either curvilinear contact length > 15 mm OR margin irregularity/bulge) T2WI score: 3 DWI score: 3 DCE: positive Overall PI-RADS v2.1 assessment: 4 Staging Information: No enlarged lymph nodes are identified. No suspicious osseous lesions are identified. Other findings: Urinary bladder is normal. Rectum and seminal vesicals are normal. No free fluid in the pelvis. IMPRESSION: A lesion in the right junction of medial and lateral peripheral zone at the mid gland to apex is at high suspicion for malignancy with an overall PI-RADS score of 4. No extraprostatic extension. Dictated by: Lino Humphreys MD The radiology attending physician has personally reviewed this study, and had reviewed and/or edited this written report and agrees with it. Electronically signed by: Jacquie Villeda M.D. Jovany Rizvi MD IMG MRI PROCEDURES Final Result * PSA diagnostic (04/15/2019) SCRIBED PSA, Serum OPKO = 2% 0 - 0 EXTERNAL LAB Blood specimen (specimen) Narrative EXTERNAL LAB - 04/15/2019 OPKO = 2%, PSA = 3.17, FREE PSA = 0.73 & % FREE = 23% Historical Provider LAB BLOOD ORDERABLES Sofía smith Result EXTERNAL LAB from Last 3 Months or Most Recently Relevant to Health Maintenance Insurance [facility] [place] [facility]O Address: [facility] [id number] [place] [id number] [facility] HMO [facility] O Care Teams Bus Driver Relationship Specialty Start Date End Date Natty Royal NP [address] [place] [address] PCP - General Nurse Practitioner 02/19/24
--- OUTSIDE RECORDS SUMMARY | 2024-06-12 13:06 | XMS_ITS | Clinical Summary ---
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 Encounters Date Type Department Care Team Description 04/11/2024 Orders Only [facility] Surgery [address] [place] [address] Jovany Rizvi MD Elevated PSA (Primary Dx) 04/04/2024 1:41 PM DISCHARGING MACHINE OPERATOR Anesthesia Event [facility] Operating Room 37932 Radha ENAMORADO, [place] [address] Debra Shane MD Khodamoradi, Shahrdad, MD 04/04/2024 1:30 PM DISCHARGING MACHINE OPERATOR - 04/04/2024 2:20 PM DISCHARGING MACHINE OPERATOR Surgery [facility] Operating Room 42711 Radha ENAMORADO, [place] [address] Jovany Rizvi MD TRANSPERINEAL EXACT VU GUIDED PROSTATE BIOPSY 04/04/2024 10:41 AM DISCHARGING MACHINE OPERATOR - 04/04/2024 3:32 PM DISCHARGING MACHINE OPERATOR Hospital Encounter [facility] Operating Room 92913 Radha ENAMORADO, [place] [address] Jovany Rizvi MD Elevated PSA Discharge Disposition: Discharge to home or self care 03/16/2024 7:43 AM DISCHARGING MACHINE OPERATOR - 03/16/2024 11:59 PM DISCHARGING MACHINE OPERATOR Hospital Encounter [facility] Imaging [address] Radha ENAMORADO, [place] [address] Elevated PSA Discharge Disposition: Discharge to home or self care from Last 3 Months Surgical History Surgery Date Site/Laterality Comments ID APPENDECTOMY 03/26/1989 - 03/25/1990 Appendectomy - (Added by TW Conv) KNEE SURGERY 03/26/1982 - 03/25/1983 Left SHOULDER SURGERY 03/26/2015 - 03/25/2016 Left NERVE SURGERY 03/26/2016 - 03/25/2017 Left nerve replacement THUMB SURGERY 03/26/1982 - 03/25/1983 Left pin placed COLONOSCOPY Medical History Medical History Date Comments Hypertension Hyperlipidemia GERD (gastroesophageal reflux disease) Family History Medical History Relation Name Comments Tremor Brother Hypertension Father Asthma Mother Diabetes Mother Heart disease Mother Family history of cardiac disorder - (Added by TW Conv) Stroke Mother Relation Name Status Comments Brother Father Mother Social History Tobacco Use Types Packs/Day Years [...] on file Legal Sex Male 7:52 AM DISCHARGING MACHINE OPERATOR Gender Identity Not on file Sexual Orientation Not on file Obstetrics History Last Filed Vital Signs Vital Sign Reading Time Taken Comments Blood Pressure 117/73 04/04/2024 3:15 PM DISCHARGING MACHINE OPERATOR Pulse 55 04/04/2024 3:15 PM DISCHARGING MACHINE OPERATOR Temperature 36.4 C (97.5 F) 04/04/2024 3:15 PM DISCHARGING MACHINE OPERATOR Respiratory Rate 22 04/04/2024 3:15 PM DISCHARGING MACHINE OPERATOR Oxygen Saturation 99% 04/04/2024 3:15 PM DISCHARGING MACHINE OPERATOR Inhaled Oxygen Concentration - - Weight 106.6 kg (235 lb) 04/04/2024 10:47 AM DISCHARGING MACHINE OPERATOR Height 190.5 cm (6' 3 ) 04/04/2024 10:47 AM DISCHARGING MACHINE OPERATOR Body Mass Index 29.37 04/04/2024 10:47 AM DISCHARGING MACHINE OPERATOR Plan of Treatment Health Maintenance Due Date Last Done Comments Colon Cancer Screening-Colonoscopy 1965 Depression Screening 1965 Hepatitis C Screening 1965 DTaP/Tdap/Td Vaccine (1 - Tdap) 1978 Hepatitis B Screening 1985 Regular Well Visit/Exam 18-64 1985 Zoster Vaccine (1 of 2) 2017 Prostate Cancer Screening-PSA 04/15/2021 04/15/2019 Covid-19 Vaccine (3 - 2023-2 5 season) 2023 08/15/2020, 07/25/2020 Influenza Vaccine (#1) 2023 01/19/2020 Pneumococcal vaccine <65 Aged Out 01/19/2020 No longer eligible based on patient's age to complete this topic Procedures Procedure Name Priority Date/Time Associated Diagnosis Comments SURGICAL PATHOLOGY Routine 04/04/2024 1: 54 PM DISCHARGING MACHINE OPERATOR Elevated PSA TRANSPERINEAL EXACT VU GUIDED PROSTATE BIOPSY 04/04/2024 1:42 PM DISCHARGING MACHINE OPERATOR Elevated PSA MRI PELVIS PROSTATE W WO CONTRAST Schedule Routine, Read Routine (OP Routine) 03/16/2024 9:02 AM DISCHARGING MACHINE OPERATOR Elevated PSA PSA DIAGNOSTIC Routine 04/15/2019 from Last 3 Months or Most Recently Relevant to Health Maintenance Results * Surgical pathology (04/04/2024 1:54 PM DISCHARGING MACHINE OPERATOR) Tissue (Prostate, Needle Biopsy) 04/04/2024 1:54 PM DISCHARGING MACHINE OPERATOR Tissue (Prostate, Needle Biopsy) 04/04/2024 1:54 PM DISCHARGING MACHINE OPERATOR Tissue (Prostate, Needle Biopsy) 04/04/2024 1:54 PM DISCHARGING MACHINE OPERATOR Tissue (Prostate, Needle Biopsy) 04/04/2024 1:55 PM DISCHARGING MACHINE OPERATOR Tissue (Prostate, Needle Biopsy) 04/04/2024 1:55 PM DISCHARGING MACHINE OPERATOR Tissue (Prostate, Needle Biopsy) 04/04/2024 1:55 PM DISCHARGING MACHINE OPERATOR Tissue (Prostate, Needle Biopsy) 04/04/2024 1:55 PM DISCHARGING MACHINE OPERATOR Tissue (Prostate, Needle Biopsy) 04/04/2024 1:55 PM DISCHARGING MACHINE OPERATOR Tissue (Prostate, Needle Biopsy) 04/04/2024 1:55 PM DISCHARGING MACHINE OPERATOR Tissue (Prostate, Needle Biopsy) 04/04/2024 1:55 PM DISCHARGING MACHINE OPERATOR Tissue (Prostate, Needle Biopsy) 04/04/2024 1:58 PM DISCHARGING MACHINE OPERATOR Narrative PATHOLOGY [facility] - 04/07/2024 2:22 PM DISCHARGING MACHINE OPERATOR EPIC results best viewed via link to PDF [facility] [place] [address] Note to Patients: This report may contain [...] details. SURGICAL PATHOLOGY REPORT FINAL Patient Name: FEDE PARDO Gender: M : 1965 (Age: 59) Address: [address] [place] [id number] Hospital #: [id number] Taken:04/04/2024 Received:04/04/2024 Reported: 04/07/2024 Patient Type: [facility] EP SAME [facility] Service: Surgery Location: Physician(s): Karon Buchanan NP [...] K1. Jar 0. emg/04/04/2024 17:44 PA(s): Chely Johnson, MS, PA (ASCP)CM By this signature, I attest that the above diagnosis is based upon my personal examination of the slides(and/or other material). Addenda/Procedures Microscopic slide review and interpretation for this case was performed at [facility], Department of Surgical Pathology, [address] [facility] [address], [address], [place] [address] CLIA # [id number] The performance characteristics of some immunohistochemical stains, fluorescence in-situ hybridization tests and immunophenotyping by flow cytometry cited in this report (if any) were determined by the Surgical Pathology and Flow Cytometry Departments at [facility] as part of an ongoing assistant manager quality management program and in compliance with federally mandated [...] Surgical Pathology and Flow Cytometry Departments of [facility]. It has not been cleared or approved by the [place]. [place]. Food and Drug Administration. IMAGES AND SCANNED DOCUMENTS, IF INCLUDED, ONLY VIEWABLE IN PDF VERSION OF REPORT Jovany Rizvi MD LAB PATHOLOGY ORDERABLES Final Result PATHOLOGY [facility] [phone] * MRI Pelvis Prostate W WO Contrast (03/16/2024 9:02 AM DISCHARGING MACHINE OPERATOR) Anatomical Region Laterality Modality Body N/A Magnetic Resonan ce 03/17/2024 9:54 AM DISCHARGING MACHINE OPERATOR Impressions 03/18/2024 6:46 AM DISCHARGING MACHINE OPERATOR A lesion in the right junction of [...] Jacquie Villeda M.D. Narrative 03/18/2024 6:46 AM DISCHARGING MACHINE OPERATOR EXAMINATION: MAGNETIC RESONANCE IMAGING OF THE PELVIS [...] it. Electronically signed by: Jacquie Villeda M.D. us Jovany Rizvi MD IMG MRI PROCEDURES Final Result * PSA diagnostic (04/15/2019) SCRIBED PSA, Serum OPKO = 2% 0 - 0 EXTERNAL LAB Blood specimen (specimen) Narrative EXTERNAL LAB - 04/15/2019 OPKO = 2%, PSA = 3.17, FREE PSA = 0.73 & % FREE = 23% us Historical Provider LAB BLOOD ORDERABLES Sofía l Result EXTERNAL LAB from Last 3 Months or Most Recently Relevant to Health Maintenance Insurance O O [employer] [facility] HMO Care Teams Cma Or Lpn Relationship Specialty Start Date End Date Natty Royal NP [address] [place], [place] [id number] PCP - General Nurse Practitioner 02/19/24
--- OUTSIDE RECORDS SUMMARY | 2024-06-12 13:06 | XMS_ITS | Clinical Summary ---
Author Organization [facility] Joycelyn Farrarefra Address [address] [place] [address] Care Team Providers Care Continuous Process Rotary Drum Tanner Name Role Phone Ranjan Metcalf MD Primary Care Provider [phone] Allergies No known active allergies Medications famciclovir (FAMVIR) 250 mg Tablet Take 250 mg by mouth every 12 hours. 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 Resolved Problems Problem Noted Date Diagnosed Date Resolved Date Elevated ferritin 06/09/2019 12/15/2019 Family History Medical History Relation Name Comments Cancer Father Diabetes Mother Heart Disease Mother Relation Name Status Comments Brother Alive Father Mother Social History Tobacco Use Types Packs/Day Years Used Date Smoking Tobacco: Never Smokeless Tobacco: Never Alcohol Use Standard Drinks/Week Comments Yes 0 (1 standard drink = 0.6 oz pur e alcohol) Sex and Gender Information Value Date Recorded Sex Assigned at Not on file Legal Sex Male 8:41 AM MEN'S LOCKER ROOM ATTENDANT Gender Identity Not on file Sexual Orientation Not on file Last Filed Vital Signs Vital Sign Reading Time Taken Comments Blood Pressure 144/91 02/12/2023 10:18 AM MEN'S LOCKER ROOM ATTENDANT Pulse 57 02/12/2023 10:15 AM MEN'S LOCKER ROOM ATTENDANT Temperature 36.3 C (97.3 F) 02/12/2023 10:15 AM MEN'S LOCKER ROOM ATTENDANT Respiratory Rate 16 02/12/2023 10:15 AM MEN'S LOCKER ROOM ATTENDANT Oxygen Saturation 99% 02/12/2023 10:15 AM MEN'S LOCKER ROOM ATTENDANT Inhaled Oxygen Concentration - - Weight 112.5 kg (248 lb) 02/12/2023 10:15 AM MEN'S LOCKER ROOM ATTENDANT Height 193 cm (6' 4 ) 02/15/2021 9:08 AM MEN'S LOCKER ROOM ATTENDANT Body Mass Index 30.19 02/15/2021 9:08 AM MEN'S LOCKER ROOM ATTENDANT Plan of Treatment Health Maintenance Due Date Last Done Comments DTAP/TDAP/TD VACCINES (1 - Tdap) 1986 HEPATITIS B VACCINES (1 of 3 - 19+ 3-dose series) 05/1985 COLORECTAL SCREENING 02/26/2012 Colorectal Cancer Screening 02/26/2012 FIT-DNA Q 3 years 02/26/2012 FIT/FOBT Q 1 year 02/26/2012 Flex Sig/CT Colonography Q 5 years 02/26/2012 ZOSTER VACCINE (1 of 2) 2017 INFLUENZA VACCINE (#1) 2023 Insurance [employer] CHOICE POS II Care Teams Continuous Process Rotary Drum Tanner Relationship Specialty Start Date End Date Ranjan Metcalf MD [address] [place] [id number] PCP - General Family Practice 02/12/23
[2024-06-12 13:31] LABS: Basophils Percent Auto 0.4 % (0.2-1.2); Eosinophils Percent Auto 0.9 % (0-4.4); Hematocrit 47.7 % (42.0-52.0); Hemoglobin 16.7 g/dL (14.0-18.0); Immature Granulocyte Absolute 0.02 K/mm3 (0.00-0.031); Immature Granulocyte Percent A 0.4 % (0-0.5); Immature Platelet Fraction Pct 7.1 % (0.9-11.2); Lymphocytes Absolute Auto 0.95 K/mm3 (0.9-3.2); Lymphocytes Percent Auto 21.3 % (18.3-44.2); Mean Corpuscular Hemoglobin 33.7 pg (26-34); Mean Corpuscular Volume 96.2 fl (80-100); Mean Platelet Volume 11.9 fl (7.4-10.4); Monocytes Absolute Auto 0.4 K/mm3 (0.1-0.6); Monocytes Percent Auto 9.9 % (2.6-8.5); Neutrophils Percent Auto 67.1 % (45.5-73.1); Platelet Count Result 62 k/mm3 (150-375); Red Blood Count 4.96 M/mm3 (4.6-6.20); Red Cell Distribution Width 11.9 % (11.5-14.5); White Blood Count 4.5 K/mm3 (4.5-10.0)
[2024-06-12 13:46] LABS: Alanine Aminotransferase 37 U/L (6-50); Albumin Level 4.7 g/dL (3.5-5.1); Alkaline Phosphatase 57 U/L (38-126); Anion Gap 9 mmol/L (4-12); Aspartate Amino Transferase 33 U/L (17-59); Bilirubin,Total 1.4 mg/dL (0.2-1.3); Blood Urea Nitrogen 21 mg/dL (9-20); Carbon Dioxide 26 mmol/L (22-30); Chloride 105 mmol/L (98-107); Cholesterol 195 mg/dL (0-200); Estimated Glomerular Filt Rate > 60; Glucose 97 mg/dL (65-110); HDL Direct 45 mg/dL; Potassium 4.1 mmol/L (3.4-5.0); Sodium 140 mmol/L (137-145); Triglycerides 117 mg/dL (<150)
[2024-06-12 13:57] LABS: LDL Cholesterol Direct 117 mg/dL
[2024-06-12 14:52] LABS: Platelet Estimate Decreased (Adequate); Schistocytes None Seen
[2024-06-12 15:39] LABS: Hemoglobin A1C 5.3 % (<5.7)
== END 2024-06-12 12:46 | disposition home or self-care (01) ==
LOC: ANHLAB 12:46
PROVIDERS: PCP Nurse Practitioner Family; Visit Provider Nurse Practitioner Family
DX: E83.110 Hereditary hemochromatosis (principal); E78.5 Hyperlipidemia, unspecified; D69.6 Thrombocytopenia, unspecified; E66.9 Obesity, unspecified; R73.01 Impaired fasting glucose; Z72.89 Other problems related to lifestyle
CPT/HCPCS: 36415; 80053; 80061; 83036; 85025; 85055

== ENCOUNTER 2025-01-01 10:34 | Outpatient (CLI) | payer OTHER, SELFPAY ==
[2025-01-01 11:42] LABS: Hematocrit 47.2 % (42.0-52.0); Hemoglobin 16.4 g/dL (14.0-18.0); Immature Granulocyte Percent A 0.5 % (0-0.5); Immature Platelet Fraction Pct 7.7 % (0.9-11.2); Lymphocytes Absolute Auto 1.00 K/mm3 (0.9-3.2); Mean Corpuscular HGB Conc 34.7 g/dl (32-36); Mean Corpuscular Hemoglobin 33.5 pg (26-34); Mean Corpuscular Volume 96.5 fl (80-100); Nucleated Red Blood Cells Absolute Auto 0.000 K/mm3 (0.0-0.012); Nucleated Red Blood Cells Perc 0.0 % (0.0-0.2); Platelet Count Result 72 k/mm3 (150-375); Red Blood Count 4.89 M/mm3 (4.6-6.20); White Blood Count 4.2 K/mm3 (4.5-10.0)
[2025-01-01 12:08] LABS: Alanine Aminotransferase 28 U/L (6-50); Albumin Level 4.5 g/dL (3.5-5.1); Alkaline Phosphatase 63 U/L (38-126); Anion Gap 8 mmol/L (4-12); Aspartate Amino Transferase 33 U/L (17-59); Bilirubin,Total 1.0 mg/dL (0.2-1.3); Blood Urea Nitrogen 20 mg/dL (9-20); Calcium 9.0 mg/dL (8.4-10.2); Carbon Dioxide 25 mmol/L (22-30); Chloride 104 mmol/L (98-107); Cholesterol 205 mg/dL (0-200); Estimated Glomerular Filt Rate > 60; Glucose 95 mg/dL (65-110); HDL Direct 45 mg/dL; Potassium 4.7 mmol/L (3.4-5.0); Sodium 137 mmol/L (137-145); Total Protein 7.4 g/dL (6.3-8.2); Triglycerides 110 mg/dL (<150)
[2025-01-01 12:09] LABS: Iron 101 ug/dL (49-181)
[2025-01-01 12:25] LABS: Percent Iron Saturation 30 % (20-50)
[2025-01-01 12:51] LABS: Ferritin 69.80 ng/mL (11.1-264)
== END 2025-01-01 10:35 | disposition home or self-care (01) ==
LOC: ANHLAB 10:38
PROVIDERS: PCP Nurse Practitioner Family; Visit Provider Nurse Practitioner Family
DX: E78.2 Mixed hyperlipidemia (principal); D69.6 Thrombocytopenia, unspecified; E83.110 Hereditary hemochromatosis; R16.1 Splenomegaly, not elsewhere classified
CPT/HCPCS: 36415; 80053; 80061; 82728; 83540; 83550; 85025; 85055